=== PATIENT | female | born 1965 | race Caucasian/White ===

== ENCOUNTER 2018-02-01 13:02 | Emergency (ER) | payer BC ==
[2018-02-01 13:40] VITALS: BP 139/76
--- NOTE | 2018-02-01 14:26 | UC ---
FLU HPI - HPI Summary HPI Summary: Pt c/o sudden onset of st, bilateral ear ache, cough, nasal congestion X 2 days. - History of Current Complaint Chief Complaint: UCGeneralIllness Stated Complaint: ST/EAR ACHE Time Seen by Provider: 02/01/18 13:55 Hx Obtained From: Patient Hx Last Menstrual Period: 03/30/2012 ?: No Onset/Duration: Sudden Onset, Lasting Days, Still Present Severity Currently: Mild Severity Initially: Mild Pain Intensity: 6 Associated Signs & Symptoms: Positive: Myalgia, Cough, Sore Throat, Nasal Congestion Related Hx: Possible Flu/Infectious Exposure - Risk Factors Influenza Risk Factors: Negative - Allergy/Home Medications Allergies/Adverse Reactions: Allergies Allergy/AdvReac Type Severity Reaction Status Date / Time No Known Allergies Allergy Verified 02/01/18 13:37 Home Medications: Home Medications NK [No Home Medications Reported] 02/01/18 [History Confirmed 02/01/18] PMH/Surg Hx/FS Hx/Imm Hx Previously Healthy: Yes - Surgical History Surgical History: None Surgery Procedure, Year, and Place: 2 c-sections - Family History Known Family History: Positive: Cardiac Disease - Social History Occupation: Employed Full-time Lives: With Family Alcohol Use: Occasionally Substance Use Type: None Smoking Status (MU): Light Every Day Tobacco Smoker Amount Used/How Often: < 1/2 ppd Length of Time of Smoking/Using Tobacco: 2 years (had quit x13 years) Have You Smoked in the Last Year: No Household Exposure Type: Cigarettes Review of Systems Constitutional: Chills, Fatigue Skin: Negative Eyes: Negative ENT: Sore Throat, Ear Ache, Sinus Congestion Respiratory: Cough Cardiovascular: Negative Gastrointestinal: Negative Genitourinary: Negative Motor: Negative Neurovascular: Negative Musculoskeletal: Myalgia Neurological: Negative Psychological: Negative Is Patient Immunocompromised?: No All Other Systems Reviewed And Are Negative: Yes Physical Exam Triage Information Reviewed: Yes Appearance: Well-Appearing Vital Signs: Initial Vital Signs Temp 98.2 F 02/01/18 13:34 Pulse 54 02/01/18 13:34 Resp 16 02/01/18 13:34 BP 139/76 02/01/18 13:34 Pulse Ox 99 02/01/18 13:34 Vital Signs Reviewed: Yes Eye Exam: Normal ENT Exam: Other ENT: Positive: Nasal congestion Dental Exam: Normal Neck exam: Normal Respiratory Exam: Normal Cardiovascular Exam: Normal Musculoskeletal Exam: Normal Neurological Exam: Normal Psychological Exam: Normal Skin Exam: Normal Flu Course/Dx - Differential Dx/Diagnosis Differential Diagnosis/HQI/PQRI: Bronchitis, Influenza, Upper Respiratory Infection Provider Diagnoses: viral syndrome Discharge - Discharge Plan Condition: Stable Disposition: HOME Patient Education Materials: Viral Syndrome (ED) Referrals: [facility] [Outside] No Primary Care Phys,NOPCP [Primary Care Provider] - Additional Instructions: Please follow up with your PCP or return to clinic as needed.
== END 2018-02-01 14:38 | disposition home or self-care (01) ==
LOC: UCCORT 13:02
DX: B34.9 Viral infection, unspecified (principal); Z87.891 Personal history of nicotine dependence
CPT/HCPCS: 87502; 87651; 99211; G0463

== ENCOUNTER 2019-04-01 18:41 | Emergency (ER) | payer BC ==
[2019-04-01 19:23] VITALS: BP 156/77
--- NOTE | 2019-04-01 20:22 | UC ---
Back Pain HPI - HPI Summary HPI Summary: Pt presents with c/o lower back and flank pain that began X 1 day. Pt denies fever, chills, nausea, vomiting, constipation, hx of kidney stones, fever, chills or injury. - History of Current Complaint Chief Complaint: UCGeneralIllness Stated Complaint: PAIN IN RIGHT SIDE Time Seen by Provider: 04/01/19 19:24 Hx Obtained From: Patient Hx Last Menstrual Period: 03/30/2012 ?: No Onset/Duration: Gradual Onset, Still Present, Worse Since - onset Timing: Constant Severity Initially: Mild Severity Currently: Severe Pain Intensity: 9 Back Pain: Is Discrete @ - right flank, Radiates To - right hip Character: Sharp, Dull, Aching Aggravating Factor(s): Movement Alleviating Factor(s): Position Associated Signs And Symptoms: Positive: Flank Pain - Risk Factors AAA Risk Factors: Negative TAD Risk Factors: Negative Cauda Equina Risk Factors: Negative Epidural Abscess Risk Factors: Negative - Allergies/Home Medications Allergies/Adverse Reactions: Allergies Allergy/AdvReac Type Severity Reaction Status Date / Time No Known Allergies Allergy Verified 04/01/19 19:15 Home Medications: Home Medications Levothyroxine TAB* [Synthroid TAB*] 50 mcg PO DAILY 04/01/19 [History Confirmed 04/01/19] PMH/Surg Hx/FS Hx/Imm Hx Previously Healthy: Yes - Surgical History Surgical History: Yes Surgery Procedure, Year, and Place: 2 c-sections - Family History Known Family History: Positive: Cardiac Disease - Social History Occupation: Employed Full-time Lives: With Family Alcohol Use: Occasionally Substance Use Type: None Smoking Status (MU): Light Every Day Tobacco Smoker Type: Cigarettes Amount Used/How Often: < 1/2 ppd Length of Time of Smoking/Using Tobacco: 2 years (had quit x13 years) Have You Smoked in the Last Year: No Household Exposure Type: Cigarettes - Immunization History Vaccination Up to Date: No Review of Systems All Other Systems Reviewed And Are Negative: Yes Constitutional: Positive: Negative Skin: Positive: Negative Eyes: Positive: Negative ENT: Positive: Negative Respiratory: Positive: Negative Cardiovascular: Positive: Negative Gastrointestinal: Positive: Negative Genitourinary: Positive: Other - flank pain right side Motor: Positive: Negative Neurovascular: Positive: Negative Musculoskeletal: Positive: Negative Neurological: Positive: Negative Psychological: Positive: Negative Is Patient Immunocompromised?: No Physical Exam Triage Information Reviewed: Yes Appearance: Pain Distress Vital Signs: Initial Vital Signs Temp 97.9 F 04/01/19 19:15 Pulse 75 04/01/19 19:15 Resp 16 04/01/19 19:15 BP 156/77 04/01/19 19:15 Pulse Ox 99 04/01/19 19:15 Vital Signs Reviewed: Yes Eye Exam: Normal ENT Exam: Normal ENT: Positive: Hearing grossly normal Dental Exam: Normal Neck exam: Normal Respiratory: Positive: Normal breath sounds Cardiovascular Exam: Normal Abdomen Description: Positive: CVA Tenderness (R) Musculoskeletal Exam: Normal Neurological Exam: Normal Psychological Exam: Normal Skin Exam: Normal Diagnostics - Radiology No standard instances Radiology Interpretation Completed By: Radiologist - IMPRESSION: No evidence of renal calculi or obstructive uropathy. There is perhaps mild bladder wall thickening. Moderate multilevel degenerative disc disease. Back Pain Course/Dx - Course Course Of Treatment: I discussed the CT impression with pt. We discussed her next options and Pt stated that she is planning on going to ER to "find out what is wrong". - Differential Dx/Diagnosis Provider Diagnosis: Hematuria, Right flank pain Discharge - Sign-Out/Discharge Documenting (check all that apply): Patient Departure All imaging exams completed and their final reports reviewed: Yes - Discharge Plan Condition: Stable Disposition: HOME-RECOMMEND TO ED Patient Education Materials: Hematuria (ED), Flank Pain (ED) Referrals: Vicky Henry PA [Primary Care Provider] - As Soon As Possible - Billing Disposition and Condition Condition: STABLE Disposition: Home-Recommend to ED
== END 2019-04-01 21:02 | disposition home health service (06) ==
LOC: UCCORT 18:41
DX: R31.9 Hematuria, unspecified (principal); R10.31 Right lower quadrant pain; F17.210 Nicotine dependence, cigarettes, uncomplicated
CPT/HCPCS: 74176; 81003; 99212; G0463

== ENCOUNTER 2020-02-07 11:29 | Emergency (ER) | payer BC ==
--- OUTSIDE RECORDS SUMMARY | 2020-02-07 11:50 | XMS REPORT | Continuity of Care Document ---
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 Problems Provider Date Hypothyroidism GERALDINE Damon Onset: 03/17/2019 Note: noted 10/2018 Degenerative joint disease involving multiple GERALDINE Damon Onset: joints Note: shoulder, foot, lumbar spine Varicose veins of lower extremity GERALDINE Damon Onset: 04/11/2019 Note: bilateral Cigarette smoker GERALDINE Damon Onset: 04/11/2019 History of abnormal cervical Papanicolaou GERALDINE Damon Onset: 2018 smear Note: 2008, JASS 3 Vitamin D deficiency GERALDINE Damon Onset: 04/11/2019 Microscopic hematuria GERALDINE Damon Onset: 04/11/2019 Note: noted 2007 Social History Type Date Description Comments Sex Unknown Tobacco Use Start: Unknown Has quit in past for 13 years Tobacco Use Start: Unknown Pt. smokes everyday 1/2 Pack Smoking Status Reviewed: 01/26/20 Pt. smokes everyday 1/2 Pack Allergies, Adverse Reactions, Alerts Active Allergies Reaction Severity Comments Date Seasonal 03/18/2019 Medications Active Medications SIG Qnty Indications Ordering Provider Date Levothyroxine Sodium 1 by mouth 90tabs Neftali 01/26/2020 75mcg every day MD Zander Tablets Vitamin D-1000 Maximum take 2 90tabs Neftali 03/18/2019 Strength capsule/tablet MD Zander 1000Unit Tablets daily by mouth Daily Multivitamin Neftali 03/18/2019 MD Zander Capsules History Medications Azithromycin 2 tabs by 6tabs J20.9 Neftali Germannos, 08/01/2019 - 250mg mouth today MD 01/22/2020 Tablets then 1 tab by mouth daily Immunizations Description No Information Available Vital Signs Date Vital Result Comment 01/26/2020 11:13am Height 67 inches 5'7" Weight 249.06 lb Heart Rate 58 /min BP Systolic Sitting 138 mmHg BP Diastolic Sitting 78 mmHg O2 % BldC Oximetry 95 % BMI (Body Mass Index) 39.0 kg/m2 08/01/2019 12:31pm Heart Rate 75 /min BP Systolic Sitting 152 mmHg BP Diastolic Sitting 84 mmHg Body Temperature 98.9 F O2 % BldC Oximetry 95 % Results Description No Information Available Procedures Description No Information Available Medical Devices Description No Information Available Encounters Type Date Location Provider Dx Diagnosis Office Visit 08/01/2019 [facility] Vicky Henry J06.9 Acute upper 10:12a Walk-in at [facility] respiratory Drugs infection, unspecified J20.9 Acute bronchitis, unspecified Assessments Date Code Description Provider 01/26/2020 E03.9 Hypothyroidism, unspecified Vicky Henry, PA 01/26/2020 M79.10 Myalgia, unspecified site Vicky Henry, GERALDINE 08/01/2019 J06.9 Acute upper respiratory infection, unspecified Vicky Henry, PA 08/01/2019 J20.9 Acute bronchitis, unspecified Vicky Henry, PA Plan of Treatment Future Appointment(s):03/09/2020 9:00 am - GERALDINE Damon at [facility]01/26/2020 - Vicky Henry PAE03.9 Hypothyroidism, unspecifiedNew Labs: Free T4 (Free Thyroxine), Scheduled: 03/22/20TSH (Thyroid Stim Horm), Scheduled : 03/22/20Creatine Kinase(CK), Scheduled: 03/22/20Comments:Current supplementation: LT 50mcg daily Increase the dose to 75mcg [id number] Myalgia, unspecified siteNew Labs:Arthritis Panel, Scheduled: 03/22/20C Reactive Protein, Scheduled: 03/22/20CBC Auto Diff, Scheduled: 03/22/20AllNew Medication:Levothyroxine Sodium 75 mcg - 1 by mouth every day Functional Status Description No Information Available Mental Status Description No Information Available Referrals Description No Information Available
--- OUTSIDE RECORDS SUMMARY | 2020-02-07 11:50 | XMS REPORT | Continuity of Care Document ---
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 Provider Date Hypothyroidism GERALDINE [...] Azithromycin 2 tabs by 6tabs J20.9 Neftali Fermin, 08/01/2019 - 250mg mouth today MD 01/22/2020 [...] Date Location Provider Dx Diagnosis Office Visit 01/26/2020 [facility] Vicky Henry, E03.9 Hypothyroidism, 11:00a PA unspecified M79.10 Myalgia, unspecified site Office Visit 08/01/2019 10:12a [facility] Vicky J06.9 Acute upper Walk-in at GERALDINE Henry respiratory [facility] infection, unspecified J20.9 Acute bronchitis, unspecified Assessments Date Code Description Provider 01/26/2020 E03.9 Hypothyroidism, unspecified Vicky Henry, PA 01/26/2020 M79.10 Myalgia, unspecified site Vicky Henry, GERALDINE 08/01/2019 J06.9 Acute upper respiratory infection, unspecified Vicky Henry, PA 08/01/2019 J20.9 Acute bronchitis, unspecified Vicky Henry, PA Plan of Treatment Future Appointment(s):03/09/2020 9:00 am - Vicky Henry PA at [facility]01/26/2020 - Vicky Henry, PAE03.9 Hypothyroidism, unspecifiedNew Labs: Free T4 (Free Thyroxine), Scheduled: 03/22/20TSH (Thyroid Stim Horm), Scheduled : 03/22/20Creatine Kinase(CK), Scheduled: 03/22/20Comments:Current supplementation: LT 50mcg daily Increase the dose to 75mcg [id number] Myalgia, unspecified siteNew Labs:Arthritis Panel, Scheduled: 03/22/20C Reactive Protein, Scheduled: 03/22/20CBC Auto Diff, Scheduled: 03/22/20AllNew Medication:Levothyroxine Sodium 75 mcg - 1 by mouth every day Functional Status Description No Information Available Mental Status Description No Information Available Referrals Description No Information Available
[2020-02-07 11:54] VITALS: BP 152/79
--- NOTE | 2020-02-07 12:09 | UC ---
Ear Complaint HPI - HPI Summary HPI Summary: 54 y/o female presents to the urgent care c/o of sinus congestion, mild ARDON and left ear pain for the past 2 days. She has also experience body aches, but not fever. She has taken OTD medication to alleviate sinus congestion. She has been exposed to the influenza w/ her grand children. She states nasal discharge is clear w/ a lot of pressure. Pt denies fever, cough, SOB, dizziness, ear discharge, chest pain,abdominal pain, N/V/D. No recent travel in the past month or contact recently Dx w/ COVID-19 - History of Current Complaint Chief Complaint: UCRespiratory Stated Complaint: EAR COMPLAINT, SINUS COMPLAINT Time Seen by Provider: 02/07/20 12:08 Hx Obtained From: Patient Hx Last Menstrual Period: 03/30/2012 ?: No - Menopausal Onset/Duration: Gradual Onset, Lasting Days - 2 days, Still Present Severity Initially: Mild Severity Currently: Mild Pain Intensity: 2 Pain Scale Used: 0-10 Numeric Alleviating Factors: OTC Meds Associated Signs/Symptoms: Positive: URI Symptoms - Allergies/Home Medications Allergies/Adverse Reactions: Allergies Allergy/AdvReac Type Severity Reaction Status Date / Time No Known Allergies Allergy Verified 02/07/20 11:51 Home Medications: Home Medications Levothyroxine TAB* [Synthroid 25 MCG TAB*] 50 mcg PO DAILY 04/01/19 [History Confirmed 02/07/20] Fluticasone NASAL SPRAY 50MCG* [Flonase NASAL SPRAY 50MCG*] 2 spray BOTH NARES DAILY #1 btl 02/07/20 [Rx] PMH/Surg Hx/FS Hx/Imm Hx Previously Healthy: Yes Endocrine History: Hypothyroidism - Surgical History Surgical History: Yes Surgery Procedure, Year, and Place: 2 c-sections - Family History Known Family History: Positive: Cardiac Disease, Hypertension - Social History Occupation: Employed Full-time Lives: With Family Alcohol Use: Rare Substance Use Type: None Smoking Status (MU): Light Every Day Tobacco Smoker Type: Cigarettes Amount Used/How Often: < 1/2 ppd Length of Time of Smoking/Using Tobacco: 2 years (had quit x13 years) Have You Smoked in the Last Year: No Household Exposure Type: Cigarettes - Immunization History Vaccination Up to Date: No Review of Systems All Other Systems Reviewed And Are Negative: Yes Constitutional: Positive: Negative Skin: Positive: Negative Eyes: Positive: Negative ENT: Positive: Sore Throat - mild, Ear Ache - left ear pain, Nasal Discharge - clear, Sinus Congestion, Sinus Pain/Tenderness Respiratory: Positive: Negative Cardiovascular: Positive: Negative Gastrointestinal: Positive: Negative Genitourinary: Positive: Negative Motor: Positive: Negative Neurovascular: Positive: Negative Musculoskeletal: Positive: Myalgia Neurological/Mental Status: Positive: Negative Psychological: Positive: Negative Is Patient Immunocompromised?: No Physical Exam - Summary Physical Exam Summary: VITAL SIGNS: Reviewed. GENERAL: Patient is a well developed and nourished female who is sitting comfortably in the examining table. Patient is not in any acute respiratory distress. HEAD AND FACE: No signs of trauma. No ecchymosis, hematomas or skull depressions. No sinus tenderness. EYES: PERRLA, EOMI x 2, No injected conjunctiva, no nystagmus. No photophobia. EARS: Hearing grossly intact. Ear canals and tympanic membranes are within normal limits. MOUTH: Positive pharynx with mild erythema, no exudates, No B/L tonsillar enlargement , no exudate. Uvula in midline. edematous nasal mucosa w/ clear nasal discharge, clear PND NECK: Supple, trachea is midline, Positive anterior cervical lymphadenopathy, no JVD, no carotid bruit, no c-spine tenderness, neck with full ROM. No meningeal signs, no Kernig's or brudzinskis signs. CHEST: Symmetric, no tenderness at palpation LUNGS: Clear to auscultation bilaterally. No wheezing or crackles. CVS: Regular rate and rhythm, S1 and S2 present, no murmurs or gallops appreciated. ABDOMEN: Soft, non-tender. No signs of distention. No rebound no guarding, and no masses palpated. Bowel sounds are normal. EXTREMITIES: FROM in all major joints, no edema, no cyanosis or clubbing. NEURO: Alert and oriented x 3. No acute neurological deficits. Pt follows commands. SKIN: Dry and warm Triage Information Reviewed: Yes Vital Signs: Initial Vital Signs Temp 97.1 F 02/07/20 11:51 Pulse 60 02/07/20 11:51 Resp 16 02/07/20 11:51 BP 152/79 02/07/20 11:51 Pulse Ox 99 02/07/20 11:51 Ear Complaint Course/Dx - Course Course Of Treatment: 54 y/o female presents to the urgent care c/o of sinus congestion, mild ARDON and left ear pain for the past 2 days. She has also experience body aches, but not fever. She has taken OTD medication to alleviate sinus congestion. She has been exposed to the influenza w/ her grand children. She states nasal discharge is clear w/ a lot of pressure. Pt denies fever, cough, SOB, dizziness, ear discharge, chest pain,abdominal pain, N/V/D. No recent travel in the past month or contact recently Dx w/ COVID-19.Pt is hemodynamically stable, A&OX3, Uon examination. Rapid strep: negative, Rapid influenza A&B: negative. Pt advise to take ibuprofen PO or Tylenol to alleviates symptoms of pain and swelling. Pt Rx Flonase and advised to also use saline drops to clear sinuses. Advised on hand washing to avoid spreading. Pt advised to rest, eat well and avoid strenuous exercise. If symptoms do not improve or worsen advised to return to the urgent care or f/u with her PCP for further evaluation and treatment. Pt's BP is elevated today and advised to decrease salt in diet, monitor BP and f/u with PCP if BP continues to be elevated for further management. Pt understood and agreed w/ plan of care. - Differential Dx/Diagnosis Differential Diagnosis/HQI/PQRI: Cerumen Impaction, Otitis Externa, Otitis Media , Perforated TM, Pharyngitis, URI, Other - influenza, COVID-19 Provider Diagnosis: Upper respiratory infection, Elevated BP without diagnosis of hypertension Discharge ED - Sign-Out/Discharge Documenting (check all that apply): Patient Departure - D/c home All imaging exams completed and their final reports reviewed: No Studies - Discharge Plan Condition: Stable Disposition: HOME Prescriptions: Fluticasone NASAL SPRAY 50MCG* [Flonase NASAL SPRAY 50MCG*] 2 spray BOTH NARES DAILY #1 btl Patient Education Materials: Upper Respiratory Infection (ED) Referrals: Vicky Henry PA [Primary Care Provider] - 2 Days Additional Instructions: 1- Please use saline drops and Flonase nasal spray to clear your sinus as directed. 2-Please continue taking Tylenol PO q6-8hrs prn as instructed after meals to alleviate fever, and sore throat. Increase fluid intake, eat well, rest and avoid strenuous exercise 3-If symptoms do not improve or worsen please return to the urgent care or f/u with your PCP in 2 days for further evaluation and treatment. 4-Your BP is elevated today advised to decrease salt in diet, monitor BP and f/ u with PCP for further management. 5- Rapid influenza A&B: negative and Rapid strep: negative - Billing Disposition and Condition Condition: STABLE Disposition: Home
[2020-02-07 12:37] LABS: Influenza A Molecular Negative (Negative); Influenza B Molecular Negative (Negative)
== END 2020-02-07 12:57 | disposition home or self-care (01) ==
LOC: UCCORT 11:29
DX: J06.9 Acute upper respiratory infection, unspecified (principal); M79.10 Myalgia, unspecified site; E03.9 Hypothyroidism, unspecified; R03.0 Elevated blood-pressure reading, without diagnosis of hypertension; F17.210 Nicotine dependence, cigarettes, uncomplicated; Z79.890 Hormone replacement therapy
CPT/HCPCS: 87651; 99212; G0463